=== PATIENT | female | born 1960 ===

== ENCOUNTER 2023-12-06 09:20 | Outpatient (AMB) | payer OTHER, SELFPAY ==
--- NOTE | 2023-12-06 09:44 | MHC.OFFWIV ---
Intake Vital Signs 12/06/23 09:45 Height 5 ft 2 in Weight 134 lb BMI 24.5 BP 118/66 Blood Pressure Location Rt brachial Position Sitting Pulse 89 Pulse Source Pulse Oximeter Temp 99.4 F Temp Source Oral Pulse Oximetry (%) 98 Oxygen Delivery Method Room Air Intake Visit Reasons: back pain Intake Note: pt c/o back pain radiating down RT leg. Started 2 weeks ago. Patient Tobacco Use Status: Never used Tobacco Allergies No Known Allergies Allergy (Verified 12/06/23 09:44) Do you need a note to return to daycare/school/sports/work: No HPI HPI Comments History of Present Illness Details Patient presents the walk-in today for sick visit Complaining of bilateral lower back pain with radiation down the right leg to the level of the foot Denies injury, trauma, fall States started after she took a 3 hour car ride to visit family Pain is worse with bending and rising from seated position Reports she took 1 dose of ibuprofen yesterday with some improvement of her symptoms Denies red flag symptoms including new loss of bowel, bladder or saddle anesthesia. FOR[facility]LY [facility], LAT[facility] Social History Patient Tobacco Use Status: Never used Tobacco Review of Systems Const All systems reviewed & are unremarkable except as noted in HPI and below Physical Exam Vital Signs: Last Vital Signs Temp 99.4 F 12/06/23 09:45 Pulse 89 12/06/23 09:45 BP 118/66 12/06/23 09:45 Pulse Ox 98 12/06/23 09:45 Oxygen Delivery Method Room Air 12/06/23 09:45 BMI result Body Mass Index 24.5 General: awake, alert, oriented. Answers questions appropriately. Fully engaged in examination. Skin: warm, dry, intact HEENT: Normocephalic. Hearing intact. Cardiac: External chest normal in appearance. Respiratory: No cough, audible wheezing or stridor. Abdomen: without gross distension. MS: No obvious swelling or deformities. Able to stand on bilateral tiptoes and bilateral heels.? Able to transition from sit to stand unassisted. Ambulates with bilaterally normal heel strike and toe off Pain with forward flexion to 50 degrees Bilateral lower extremity strength 5/5 SLR positive on the right Nontender over bilateral PSIS Tenderness midline lumbar vertebrae and lumbar paraspinal muscles Neurological: Oriented to person, place, time and situation. Thought process intact. No gait abnormalities appreciated. Psychiatric: Appropriate mood and affect. Good judgment and insight. Assessment & Plan Assessment & Plan (1) Right lumbar radiculopathy: Code(s): M54.16 - Radiculopathy, lumbar region Plan Methocarbamol 500 mg p.o. t.i.d. as needed. patient advised on cautions for use. Do not take with alcohol or other [employer] depressants. No driving while taking this medication Naproxen 250 mg p.o. b.i.d. as needed. Take with food, do not take with any other nonsteroidal anti-inflammatory medications Rest, ice, heat Follow up with PCP as planned, may benefit from referral to physical therapy. If no improvement with physical therapy consider referral to pain management for epidural steroid injection. All questions and concerns were answered, patient agrees with the plan. Follow up with PCP or return here for any new worsening symptoms Medications: New methocarbamol 500 mg PO TID 30 tabs 0RF naproxen Take with food. Do not take with any other nonsteroidal anti-inflammatory medications. 250 mg PO BID PRN 30 tabs 0RF pain Coding Level of Care Code Est Pt Level 3 (77913) Diagnoses Right lumbar radiculopathy M54.16
[2023-12-06 09:45] VITALS: BP 118/66; PULSE 89; TEMP 37.4; O2SAT 98; BMI 24.5
== END 2023-12-06 10:34 | disposition home or self-care (01) ==
PROVIDERS: Visit Provider Registered Nurse Emergency
DX: M54.16 Radiculopathy, lumbar region (principal)
CPT/HCPCS: 99213

== ENCOUNTER 2024-05-08 10:19 | Outpatient (REF) | payer OTHER, SELFPAY ==
[2024-05-08 16:09] LABS: Influenza A PCR NEGATIVE (Negative); Influenza B PCR NEGATIVE (Negative); Resp Syncy Virus RNA Qual PCR NEGATIVE (Negative); SARS COV2 PCR INHOUSE NEGATIVE (Negative)
== END 2024-05-08 10:20 | disposition home or self-care (01) ==
LOC: HO.LNP 10:19
PROVIDERS: Visit Provider Registered Nurse
DX: J06.9 Acute upper respiratory infection, unspecified (principal)
CPT/HCPCS: 0241U

== ENCOUNTER 2024-05-08 10:19 | Outpatient (AMB) | payer OTHER, SELFPAY ==
--- NOTE | 2024-05-08 11:28 | MHC.OFFWIV ---
Intake Vital Signs 05/08/24 11:34 Weight 141 lb BP 110/62 Blood Pressure Location Rt brachial Position Sitting Pulse 75 Pulse Source Pulse Oximeter Temp 98.4 F Temp Source Oral Pulse Oximetry (%) 97 Oxygen Delivery Method Room Air Intake Visit Reasons: EP-cough, chest pain, sob, headaaches Intake Note: Patient here for SOB, cough, chest tightness and headaches that started wednesday. Patient Tobacco Use Status: Never used Tobacco Allergies No Known Allergies Allergy (Verified 05/08/24 11:34) Do you need a note to return to daycare/school/sports/work: No HPI EP-cough, chest pain, sob, headaaches HPI Details This note is constructed using voice recognition software. While every effort has been made to ensure accuracy, summer intern errors may have been included. The patient is a 63 year old female who presents to the clinic today with cough, headaches, chest wall pain with cough only, and dyspnea with activity since Wednesday. She denies fever, chills, dyspnea at rest, chest pain. She has not been taking her albuterol inhaler, as she had previously been over taking it, and wanted to try to find a good balance. [facility]LY [facility] Social History Patient Tobacco Use Status: Never used Tobacco Review of Systems Const All systems reviewed & are unremarkable except as noted in HPI and below Physical Exam Vital Signs: Last Vital Signs Temp 98.4 F 05/08/24 11:34 Pulse 75 05/08/24 11:34 BP 110/62 05/08/24 11:34 Pulse Ox 97 05/08/24 11:34 Oxygen Delivery Method Room Air 05/08/24 11:34 Const General: cooperative, healthy appearing, comfortable and no acute distress Orientation/consciousness: patient oriented x3 Limitations: no limitations HEENT Head: Yes normal to inspection Ears: hearing grossly normal bilaterally, external ears normal and TM's normal bilaterally General nose exam: Normal external nose present, Normal nares present and No nasal discharge present Face and sinus: Yes normal facial exam and Yes sinuses nontender Mouth: Normal oral and palatal mucosa present and moist mucous membranes Throat: Yes tonsils normal, Yes uvula midline and Yes posterior oropharynx abnormal (Erythema) Eyes General: appearance normal, both eyes and all related structures Neck Neck: Yes normal visual inspection Resp Effort & Inspection: normal respiratory effort, able to speak in complete sentences, Actively coughing, no respiratory distress, not tachypneic, no tripod positioning and no use of accessory muscles Auscultation: clear to auscultation bilaterally (But tight sounding) Cardio Jugular venous distension: no JVD Rate: regular rate Rhythm: regular rhythm Heart sounds: S1 normal heart sound present, S2 normal heart sound present, no click, no gallops, no murmurs and no rubs Skin General skin exam: no rashes or lesions noted, elasticity normal and turgor normal Neuro General: patient oriented x3 Extrem General: Yes normal to inspection and Yes no clubbing, cyanosis or edema Assessment & Plan Assessment & Plan (1) Asthma exacerbation: Code(s): J45.901 - Unspecified asthma with (acute) exacerbation Qualifiers: Asthma severity: mild Asthma persistence: intermittent Qualified Code(s): J45.21 - Mild intermittent asthma with (acute) exacerbation Plan: Reviewed use of albuterol inhaler, advised to use. Prednisone burst sent for symptomatic management of asthma. Advised patient to follow up as needed with worsening or failure to resolve. Viral swab obtained to rule out Covid, Influenza, and RSV based on symptoms. Advised mask wearing while symptomatic and quarantine per current CDC guidelines. Reviewed at home support methods including hydration, humidification, vix vapor rub, sinus rinse, and otc treatment options. Advised follow up with worsening symptoms such as dyspnea at rest, which would require emergent evaluation. Plan See above for full details and plan. Orders: Orders SARS-CoV2/FLU/RSV Today J06.9 - Acute upper respiratory infection, unspecified Medications: New prednisone 40 mg (2 x 20 mg) PO DAILY 5 days 10 tabs 0RF Coding Level of Care Code Est Pt Level 3 (71436) Diagnoses Mild intermittent asthma with exacerbation J45.21 Asthma severity: mild Asthma persistence: intermittent
[2024-05-08 11:34] VITALS: BP 110/62; PULSE 75; TEMP 36.9; O2SAT 97
== END 2024-05-08 12:28 | disposition home or self-care (01) ==
PROVIDERS: Visit Provider Registered Nurse
DX: J45.21 Mild intermittent asthma with (acute) exacerbation (principal)

== ENCOUNTER 2024-08-31 11:32 | Outpatient (AMB) | payer MEDICARE, OTHER, SELFPAY ==
[2024-08-31 12:24] VITALS: BP 118/66; PULSE 84; RESP 18; TEMP 37.1; O2SAT 99; BMI 25.8
--- NOTE | 2024-08-31 12:24 | MHC.OFFWIV ---
Intake Vital Signs 08/31/24 12:24 Height 5 ft 2 in Weight 141 lb BMI 25.8 BP 118/66 Blood Pressure Location Lt brachial Position Sitting Respiration 18 Pulse 84 Pulse Source Pulse Oximeter Temp 98.7 F Temp Source Oral Pulse Oximetry (%) 99 Oxygen Delivery Method Room Air Intake Visit Reasons: EP-body rash Intake Note: Pt is here today for a walk in visit. Pt c/o rash on her feet that strated on Wednesday and now the rash is on her back shoulders and legs. Patient Tobacco Use Status: Never used Tobacco Allergies diphenhydramine [From Benadryl] Allergy (Verified 08/31/24 12:27) Unknown HPI HPI Comments History of Present Illness Details History of Present Illness - The patient is a 64-year-old female presenting with a rash with itching. - Rash onset occurred 4 days ago, with initial presentation on one leg before extending to the thighs and contralateral leg. - She applied vinegar, leading to minor relief, and oil from Benadryl capsules was applied topically to alleviate itching. - A change in one laundry detergent was acknowledged by the patient, though no changes in soaps or lotions were reported. - There is an absence of fever Physical Exam General: Cooperative, healthy appearing, comfortable, no acute distress and well developed Orientation: Patient oriented x3 Limitations: No limitations Head: Normal to inspection Ears: Hearing grossly normal bilaterally Nose: Normal External nose present Face and sinus: Normal facial exam Eyes: Appearance normal, both eyes and all related structures Neck: Normal visual inspection and Yes full ROM Respiratory: Normal respiratory effort and able to speak in complete sentences. Skin: pinpoint areas of erythema on BL LE and left arm, no warmth, ecchymosis or vascular changes noted Neuro: Patient oriented x3 Extremities: Normal to inspection [facility] Social History Patient Tobacco Use Status: Never used Tobacco Review of Systems Const All systems reviewed & are unremarkable except as noted in HPI and below Physical Exam Vital Signs: Last Vital Signs Temp 98.7 F 08/31/24 12:24 Pulse 84 08/31/24 12:24 Resp 18 08/31/24 12:24 BP 118/66 08/31/24 12:24 Pulse Ox 99 08/31/24 12:24 Oxygen Delivery Method Room Air 08/31/24 12:24 BMI result Body Mass Index 25.8 Assessment & Plan Assessment & Plan (1) Allergic dermatitis: Code(s): L23.9 - Allergic contact dermatitis, unspecified cause Plan: The patient will be treated for suspected allergic dermatitis with a topical cortisone cream application twice daily for one week. To mitigate the potential allergenic trigger, she should resume using a previously tolerated laundry detergent and stop using the new one she is using. Asthma management should remain consistent to prevent respiratory distress during treatment for the dermatitis. Evaluation of treatment efficacy is advised, with instructions to seek further assessment if symptoms persist or worsen. She can also try Pepcid since she cannot tolerate benadryl. Patient was informed and verbally consented to the use of an ambient scribe for clinic note documentation during this visit. Medications: New triamcinolone acetonide 0.1% 1 appl topical BID 80 grams 0RF Coding Level of Care Code New Pt Level 3 (81728) Diagnoses Allergic dermatitis L23.9
== END 2024-08-31 12:45 | disposition home or self-care (01) ==
PROVIDERS: PCP Family Medicine; Visit Provider Physician Assistant
DX: L23.9 Allergic contact dermatitis, unspecified cause (principal)

== ENCOUNTER → 2024-08-31 11:32 | Outpatient (BNVA) | payer MEDICARE, OTHER, SELFPAY | PROVIDERS: PCP Family Medicine; Visit Provider Physician Assistant | DX: L23.9 Allergic contact dermatitis, unspecified cause (principal) | CPT/HCPCS: 99202 ==

== ENCOUNTER 2024-12-15 08:57 | Outpatient (AMB) | payer MEDICARE, OTHER, SELFPAY ==
[2024-12-15 09:38] VITALS: BP 104/60; PULSE 84; TEMP 37.1; O2SAT 99; BMI 25.2
--- NOTE | 2024-12-15 09:38 | AM.OFFWIN_ITS ---
Intake Vital Signs 12/15/24 09:38 Height 5 ft 2 in Weight 138 lb BMI 25.2 BP 104/60 Blood Pressure Location Lt brachial Position Sitting Pulse 84 Pulse Source Pulse Oximeter Temp 98.7 F Temp Source Oral Pulse Oximetry (%) 99 Oxygen Delivery Method Room Air Intake Visit Reasons: EP ear, throat, congestion, body aches Intake Note: presents with throat ache,sinus congestion, body aches Patient Tobacco Use Status: Never used Tobacco Allergies diphenhydramine (From Benadryl) Allergy (Intermediate, Verified 12/15/24 09:49) Unknown Do you need a note to return to daycare/school/sports/work: No HPI HPI Comments History of Present Illness Details This is a 64-year-old female with a past medical history of gastroesophageal reflux disease, hypertension and hypothyroidism presenting for evaluation of sore throat, left ear pain, sinus congestion and myalgias that she has had for the past 3 days. Patient states that she saw her dentist on Wednesday and was told that she had infection in her teeth and was prescribed clindamycin 300 mg t.i.d. x7 days. Patient states that she has a broken tooth on her right lower dentition and an abscess on her right upper dentition. Patient has been taking her antibiotic therapy as prescribed. She has not taken any additional medication for her discomfort. [facility] Social History Patient Tobacco Use Status: Never used Tobacco Review of Systems Const All systems reviewed & are unremarkable except as noted in HPI and below Reports body aches, Denies chills, Denies fatigue, Denies fever(s) and Denies headache(s) Eyes Reports no additional complaints ENT Reports no additional complaints, Reports otalgia (left), Denies headache(s), Denies post nasal drip and Reports sore throat Card Reports no additional complaints Resp Reports no additional complaints, Denies chest congestion and Denies cough GI Reports no additional complaints, Denies dyspepsia, Denies nausea and Denies vomiting Reports no additional complaints Musc Reports no additional complaints Skin/Breast Reports system reviewed and no additional complaints, except as documented Neuro Reports no additional complaints and Denies headache(s) Psych Reports no additional complaints Endo Reports no additional complaints and Denies fatigue Aller/Immun Reports no additional complaints Physical Exam Vital Signs: Last Vital Signs Temp 98.7 F 12/15/24 09:38 Pulse 84 12/15/24 09:38 BP 104/60 12/15/24 09:38 Pulse Ox 99 12/15/24 09:38 Oxygen Delivery Method Room Air 12/15/24 09:38 BMI result Body Mass Index 25.2 Patient is afebrile. Const General: cooperative, healthy appearing, comfortable, no acute distress, well developed, alert, awake and Physically active; No ill appearing Nutritional Appearance: average body habitus Orientation/consciousness: patient oriented x3 Limitations: no limitations HEENT Head: Yes normal to inspection and Yes normocephalic Ears: hearing grossly normal bilaterally, external ears normal, TM's normal bilaterally (No erythema or fluid level noted bilaterally.) and EAC's normal General nose exam: Normal external nose present Face and sinus: Yes normal facial exam and Yes sinuses nontender Mouth: Normal oral and palatal mucosa present and moist mucous membranes Throat: Yes posterior oropharynx normal (There is no edema, erythema or exudates of the posterior oropharynx.) and No postnasal drainage Eyes General: appearance normal, both eyes and all related structures Neck Lymphatic: no lymphadenopathy noted Resp Effort & Inspection: no audible wheezes, no cough, not labored and not tachypneic Auscultation: clear to auscultation bilaterally Cardio Rate: regular rate Rhythm: regular rhythm Skin General skin exam: no rashes or lesions noted Neuro General: patient oriented x3 Psych Appearance: grossly normal Mental Status: mental status grossly normal Insight: Good insight present (Psych) Judgement: Good judgement present (Psych) Results Reviewed Results Reviewed: Rapid strep test is negative. Assessment & Plan Assessment & Plan (1) Pharyngitis: Comment: Rapid strep is negative. There is no evidence of an otitis media bilaterally. Patient is requesting testing for COVID-19. Code(s): J02.9 - Acute pharyngitis, unspecified Qualifiers: Pharyngitis/tonsillitis etiology: unspecified etiology Qualified Code(s): J02.9 - Acute pharyngitis, unspecified Plan: Patient will continue taking her clindamycin as previously prescribed by her dentist. Ibuprofen or Tylenol as needed for discomfort. SARS panel is ordered and results are pending. Orders: Orders SARS-CoV2/FLU/RSV Today J06.9 - Acute upper respiratory infection, unspecified Coding Level of Care Code Est Pt Level 3 (37178) Diagnoses Pharyngitis, unspecified etiology J02.9 Pharyngitis/tonsillitis etiology: unspecified etiology Time Spent (min) 20
== END 2024-12-15 10:21 | disposition home or self-care (01) ==
PROVIDERS: PCP Family Medicine; Visit Provider Physician Assistant
DX: J02.9 Acute pharyngitis, unspecified (principal)

== ENCOUNTER 2024-12-15 08:57 | Outpatient (REF) | payer MEDICARE, OTHER, SELFPAY ==
[2024-12-15 14:20] LABS: Resp Syncy Virus RNA Qual PCR NEGATIVE (Negative); SARS COV2 PCR INHOUSE POSITIVE (Negative)
== END 2024-12-15 08:58 | disposition home or self-care (01) ==
LOC: HO.LNP 08:57
PROVIDERS: PCP Family Medicine; Visit Provider Physician Assistant
DX: J02.9 Acute pharyngitis, unspecified (principal); J06.9 Acute upper respiratory infection, unspecified; R09.81 Nasal congestion; M79.10 Myalgia, unspecified site
CPT/HCPCS: 87637; 99212